=== PATIENT | female | born 1975 | race African-American/Black ===

== ENCOUNTER 2016-10-11 09:54 | Inpatient (IN) | payer MEDICAID ==
[~2016-10-11] VITALS: Ht 154.9 cm; Wt 56.7 kg
[2016-10-11] MEDS ORDERED: MAGNESIUM/ALUMINUM HYDROXIDE/SIMETHICONE 30ML UDC PO NR (10:50)
[2016-10-11] MEDS ORDERED: VISCOUS LIDOCAINE 2% 15 ML UDC PO NR (11:20)
[2016-10-11 11:39] LABS: HEMATOCRIT. 27.8 % (36.0-48.0); HEMOGLOBIN. 8.6 g/dL (12.0-16.0); MEAN CORPUSCULAR HEMOGLOBIN 19.8 pg (28.0-32.0); MEAN CORPUSCULAR HGB CONC 30.9 g/dL (31.0-37.0); MEAN PLATELET VOLUME 8.2 fl (7.4-10.4); PLATELET 342 x1000/uL (130-400); RED BLOOD CELL COUNT 4.34 mill/uL (4.2-5.4); RED CELL DISTRIBUTION WIDTH 20.1 % (11.6-14.6); WHITE BLOOD COUNT 15.8 x1000/uL (4.5-11.0)
[2016-10-11 11:42] LABS: DIFFERENTIAL COMMENT 1
[2016-10-11] MEDS: SODIUM CHLORIDE 0.9% 1,000 ML IV NR ×3 (11:42→13:23)
[2016-10-11 11:45] LABS: CLARITY URINE CLEAR (CLEAR); COLOR URINE DARK YELLOW (YELLOW); GLUCOSE URINE NEGATIVE (NEGATIVE); KETONES URINE TRACE (NEGATIVE); LEUKOCYTE ESTERASE URINE TRACE (NEGATIVE); NITRITE URINE POSITIVE (NEGATIVE); OCCULT BLOOD URINE TRACE (NEGATIVE); PH URINE 7.5 (4.5-8.0); PROTEIN URINE 2+ (NEGATIVE); SPECIFIC GRAVITY URINE 1.035 (1.005-1.030)
[2016-10-11 11:50] LABS: ALANINE AMINOTRANSFERASE 17 IU/L (13-61); ANION GAP 10; CALCIUM 8.3 mg/dL (8.5-10.1); CARBON DIOXIDE 29 mEq/L (21-32); CHLORIDE 101 mEq/L (98-107); INDEX HEMOLYSI 1 (1-3); INDEX ICTERIC 1 (1-4); INDEX LIPEMIC 1 (1-3); LIPASE 92 IU/L (73-393); UREA NITROGEN BLOOD 9 mg/dL (7-21); eGFR > 60 mL/min (>60)
[2016-10-11 11:56] LABS: INR 1.2
[2016-10-11] MEDS ORDERED: MORPHINE SULFATE 2 MG/ML CPJ (NOT FOR IM USE) IV ONE ×2 (12:00→12:30)
[2016-10-11] MEDS: ONDANSETRON HCL 4MG/2ML VIAL IV NR ×2 (12:06→21:23)
[2016-10-11 12:08] LABS: ANISOCYTOSIS 2+; PLATELET ESTIMATE NORMAL
[2016-10-11 12:09] LABS: MUCUS URINE TRACE /lpf (< = 2+)
[2016-10-11 12:09] LABS: HYPOCHROMASIA 1+
[2016-10-11 12:10] LABS: SQUAMOUS EPITHELIAL CELL URINE 1+ /lpf (RARE/1+)
[2016-10-11 12:10] LABS: ACANTHOCYTES FEW
[2016-10-11 12:11] LABS: BACTERIA URINE 3+
[2016-10-11 12:12] LABS: YEAST URINE FEW
[2016-10-11 12:13] LABS: RBC URINE NONE SEEN /hpf (0-2)
[2016-10-11] MEDS ORDERED: KETOROLAC 30MG/ML VIAL IV ONE (13:00)
[2016-10-11] MEDS ORDERED: METRONIDAZOLE 500 MG PREMIX 100 ML IV ONE (13:00)
[2016-10-11] MEDS ORDERED: CLINDAMYCIN 600 MG in DEXTROSE 5% WATER 50 ML IV SCH (13:00)
[2016-10-11] MEDS ORDERED: SODIUM CHLORIDE 0.9% 100 ML IV ONE (13:00)
[2016-10-11 15:15] LABS: HCG SCREEN NEGATIVE
[2016-10-11] MEDS ORDERED: KCL 20MEQ/100ML PREMIX 100 ML IV ONE (17:30)
[2016-10-11] MEDS ORDERED: DIPHENHYDRAMINE 50MG/ML VIAL IV PRN (18:15)
[2016-10-11 18:35] LABS: MAGNESIUM 1.9 mg/dL (1.8-2.4); PHOSPHORUS 2.5 mg/dL (2.5-4.9)
[2016-10-11 20:29] VITALS: BP 126/99
[2016-10-11 20:45] VITALS: BP 126/83
[2016-10-11] MEDS: MORPHINE SULFATE 4 MG/ML CPJ (NOT FOR IM USE) IV PRN (21:23)
[2016-10-11] MEDS ORDERED: MAGNESIUM 2 G PREMIX 50 ML IV NR (22:00)
[2016-10-11] MEDS ORDERED: LEVOFLOXACIN 750MG PREMIX 150 ML IV SCH (22:00)
[2016-10-11] MEDS: ACETAMINOPHEN 325MG TABLET PO PRN (22:58)
[2016-10-11] MEDS: DEXT 5%/0.45% NACL KCL 40MEQ/L 1,000 ML IV SCH (23:25)
[2016-10-11] MEDS: PANTOPRAZOLE SODIUM 40 MG/VIAL IV SCH (23:25)
[2016-10-11 23:56] VITALS: BP 95/52
[2016-10-12 03:36] VITALS: BP 92/56
[2016-10-12 05:28] LABS: BASOPHILS % 0.1 % (0.0-2.0); EOSINOPHILS % 0.1 % (0.0-5.0); HEMATOCRIT. 24.2 % (36.0-48.0); HEMOGLOBIN. 7.3 g/dL (12.0-16.0); LYMPHOCYTES % 12.6 % (20.0-50.0); MEAN CORPUSCULAR HEMOGLOBIN 19.5 pg (28.0-32.0); MONOCYTES % 10.6 % (2.0-8.0); NEUTROPHILS % 76.6 % (40.0-76.0); PLATELET 274 x1000/uL (130-400); RED BLOOD CELL COUNT 3.72 mill/uL (4.2-5.4); RED CELL DISTRIBUTION WIDTH 19.9 % (11.6-14.6)
[2016-10-12 05:56] LABS: ANION GAP 11; CALCIUM 7.5 mg/dL (8.5-10.1); CARBON DIOXIDE 27 mEq/L (21-32); CHLORIDE 105 mEq/L (98-107); INDEX HEMOLYSI 1 (1-3); INDEX ICTERIC 1 (1-4); INDEX LIPEMIC 1 (1-3); MAGNESIUM 2.7 mg/dL (1.8-2.4); UREA NITROGEN BLOOD 6 mg/dL (7-21); eGFR > 60 mL/min (>60)
[2016-10-12 06:19] LABS: DIFFERENTIAL COMMENT 1
[2016-10-12 06:20] LABS: ADD RBC MORPHOLOGY NO
[2016-10-12 08:00] VITALS: BP 95/72
[2016-10-12] MEDS: DEXT 5%/0.45% NACL KCL 40MEQ/L 1,000 ML IV SCH ×2 (08:00→18:00)
[2016-10-12] MEDS: ONDANSETRON HCL 4MG/2ML VIAL IV PRN ×2 (08:26→18:58)
[2016-10-12] MEDS: ACETAMINOPHEN 325MG TABLET PO PRN (08:29)
[2016-10-12] MEDS: PANTOPRAZOLE SODIUM 40 MG/VIAL IV SCH (09:00)
[2016-10-12] MEDS ORDERED: BISACODYL 10MG SUPP PR NR (10:00)
[2016-10-12] MEDS ORDERED: HYDROCODONE/ACETAMINOPHEN 5/325MG TABLET PO PRN (14:30)
[2016-10-12] MEDS: IRON SUCROSE COMPLEX 100 MG/5 ML ML IV SCH (15:13)
[2016-10-12 16:00] VITALS: BP 94/62
[2016-10-12 20:00] VITALS: BP 151/88
[2016-10-12] MEDS: LEVOFLOXACIN 750MG PREMIX 150 ML IV SCH (20:52)
[2016-10-12] MEDS: MORPHINE SULFATE 4 MG/ML CPJ (NOT FOR IM USE) IV PRN (20:59)
[2016-10-13] VITALS: BP 95/58
[2016-10-13 04:00] VITALS: BP 99/68
[2016-10-13] MEDS: DEXT 5%/0.45% NACL KCL 40MEQ/L 1,000 ML IV SCH ×2 (04:29→15:41)
[2016-10-13 07:48] LABS: ANION GAP 10; CALCIUM 7.9 mg/dL (8.5-10.1); CARBON DIOXIDE 27 mEq/L (21-32); CHLORIDE 106 mEq/L (98-107); INDEX HEMOLYSI 1 (1-3); INDEX ICTERIC 1 (1-4); INDEX LIPEMIC 1 (1-3); MAGNESIUM 2.1 mg/dL (1.8-2.4); PHOSPHORUS 1.5 mg/dL (2.5-4.9); eGFR > 60 mL/min (>60)
[2016-10-13 07:50] LABS: UREA NITROGEN BLOOD 2 mg/dL (7-21)
[2016-10-13 08:00] VITALS: BP 99/68
[2016-10-13 09:55] LABS: BASOPHILS % 0.8 % (0.0-2.0); EOSINOPHILS % 1.5 % (0.0-5.0); HEMATOCRIT. 24.8 % (36.0-48.0); HEMOGLOBIN. 7.6 g/dL (12.0-16.0); LYMPHOCYTES % 11.1 % (20.0-50.0); MEAN CORPUSCULAR HEMOGLOBIN 20.1 pg (28.0-32.0); MEAN CORPUSCULAR HGB CONC 30.5 g/dL (31.0-37.0); MEAN PLATELET VOLUME 8.2 fl (7.4-10.4); MONOCYTES % 7.7 % (2.0-8.0); NEUTROPHILS % 78.9 % (40.0-76.0); PLATELET 299 x1000/uL (130-400); RED BLOOD CELL COUNT 3.75 mill/uL (4.2-5.4); WHITE BLOOD COUNT 9.6 x1000/uL (4.5-11.0)
[2016-10-13 09:57] LABS: DIFFERENTIAL COMMENT 1
[2016-10-13] MEDS: PANTOPRAZOLE SODIUM 40 MG/VIAL IV SCH (10:35)
[2016-10-13 12:00] VITALS: BP 91/66
[2016-10-13] MEDS ORDERED: POTASSIUM PHOS,M-BASIC-D-BASIC 20 MMOL in DEXT 5% WATER 243.3333 ML IV ONE (13:00)
[2016-10-13] MEDS: IRON SUCROSE COMPLEX 100 MG/5 ML ML IV SCH (13:47)
[2016-10-13] MEDS ORDERED: IRON SUCROSE COMPLEX 100 MG/5 ML ML IV NR (14:45)
[2016-10-13] MEDS: ONDANSETRON HCL 4MG/2ML VIAL IV PRN (15:58)
[2016-10-13] MEDS: MORPHINE SULFATE 4 MG/ML CPJ (NOT FOR IM USE) IV PRN (15:58)
[2016-10-13 16:00] VITALS: BP 113/74
[2016-10-13 20:00] VITALS: BP 91/60
[2016-10-13] MEDS: LEVOFLOXACIN 750MG PREMIX 150 ML IV SCH (20:35)
[2016-10-14 04:00] VITALS: BP 99/61
[2016-10-14] MEDS: MORPHINE SULFATE 4 MG/ML CPJ (NOT FOR IM USE) IV PRN (06:02)
[2016-10-14 06:44] LABS: BASOPHILS % 0.5 % (0.0-2.0); EOSINOPHILS % 2.2 % (0.0-5.0); HEMOGLOBIN. 8.1 g/dL (12.0-16.0); LYMPHOCYTES % 13.2 % (20.0-50.0); MEAN CORPUSCULAR HGB CONC 31.1 g/dL (31.0-37.0); MEAN CORPUSCULAR VOLUME 64.3 fL (81.0-99.0); MEAN PLATELET VOLUME 7.7 fl (7.4-10.4); MONOCYTES % 12.6 % (2.0-8.0); NEUTROPHILS % 71.5 % (40.0-76.0); PLATELET 377 x1000/uL (130-400); RED BLOOD CELL COUNT 4.05 mill/uL (4.2-5.4); RED CELL DISTRIBUTION WIDTH 19.6 % (11.6-14.6); WHITE BLOOD COUNT 8.4 x1000/uL (4.5-11.0)
[2016-10-14 07:13] LABS: DIFFERENTIAL COMMENT 1
[2016-10-14 07:23] LABS: CHLORIDE 104 mEq/L (98-107); INDEX HEMOLYSI 1 (1-3); INDEX ICTERIC 1 (1-4); INDEX LIPEMIC 1 (1-3)
[2016-10-14 07:32] LABS: ANION GAP 12; CALCIUM 8.5 mg/dL (8.5-10.1); CARBON DIOXIDE 26 mEq/L (21-32); PHOSPHORUS 2.4 mg/dL (2.5-4.9); eGFR > 60 mL/min (>60)
[2016-10-14 07:34] LABS: UREA NITROGEN BLOOD 1 mg/dL (7-21)
[2016-10-14 07:50] VITALS: BP 91/55
[2016-10-14] MEDS: PANTOPRAZOLE SODIUM 40 MG/VIAL IV SCH (08:58)
[2016-10-14 12:03] VITALS: BP 96/55
[2016-10-14 12:52] VITALS: BP 96/55
[2016-10-14] MEDS ORDERED: IRON SUCROSE COMPLEX 100 MG/5 ML ML IV NR (15:00)
== END 2016-10-14 14:20 | disposition home or self-care (01) | DRG 720 ==
LOC: ER 10:32 → 6EST 17:18
PROVIDERS: ADMIT Internal Medicine; ATTEND Internal Medicine
DX: A41.9 Sepsis, unspecified organism (principal); E44.1 Mild protein-calorie malnutrition; E87.6 Hypokalemia; N39.0 Urinary tract infection, site not specified; D50.9 Iron deficiency anemia, unspecified; Z60.2 Problems related to living alone; R11.2 Nausea with vomiting, unspecified; G43.909 Migraine, unspecified, not intractable, without status migrainosus; D53.9 Nutritional anemia, unspecified; Z83.3 Family history of diabetes mellitus; Z80.9 Family history of malignant neoplasm, unspecified; Z68.23 Body mass index [BMI] 23.0-23.9, adult; Z88.0 Allergy status to penicillin
CPT/HCPCS: 36415; 70450; 74176; 76830; 76856; 80048; 80053; 81001; 81025; 83540; 83550; 83690; 83735; 84100; 84703; 85025; 85610; 87040; 87086; 96361; 96365; 96367; 96375; 96376; 99285; C9113; G0482; J1885; J1956; J2270; J2405; J3475; J3480; J3490; J7030; J7040; J7060

== ENCOUNTER 2016-11-16 12:55 | Emergency (ER) | payer MEDICAID ==
[~2016-11-16] VITALS: Ht 165.1 cm; Wt 55.0 kg
[2016-11-16 14:32] VITALS: BP 98/47
== END 2016-11-16 23:49 | disposition left against medical advice (07) ==
LOC: ER 21:17
DX: R11.10 Vomiting, unspecified (principal); Z53.21 Procedure and treatment not carried out due to patient leaving prior to being seen by health care provider

== ENCOUNTER 2016-11-17 07:54 | Inpatient (IN) | payer MEDICAID ==
[~2016-11-17] VITALS: Ht 154.9 cm; Wt 54.4 kg
[2016-11-17] MEDS ORDERED: KETOROLAC 30MG/ML VIAL IV STA (08:20)
[2016-11-17] MEDS ORDERED: SODIUM CHLORIDE 0.9% 1,000 ML IV ONE (08:20)
[2016-11-17 08:38] LABS: BASOPHILS % 0.3 % (0.0-2.0); EOSINOPHILS % 0.3 % (0.0-5.0); HEMOGLOBIN. 10.7 g/dL (12.0-16.0); LYMPHOCYTES % 15.5 % (20.0-50.0); MEAN CORPUSCULAR HEMOGLOBIN 22.5 pg (28.0-32.0); MEAN CORPUSCULAR HGB CONC 31.4 g/dL (31.0-37.0); MEAN CORPUSCULAR VOLUME 71.6 fL (81.0-99.0); MONOCYTES % 12.4 % (2.0-8.0); NEUTROPHILS % 71.5 % (40.0-76.0); PLATELET 238 x1000/uL (130-400); RED BLOOD CELL COUNT 4.75 mill/uL (4.2-5.4); RED CELL DISTRIBUTION WIDTH 25.9 % (11.6-14.6); WHITE BLOOD COUNT 10.6 x1000/uL (4.5-11.0)
[2016-11-17 08:45] LABS: INR 1.1; PARTIAL THROMBOPLASTIN TIME 29.8 sec (24.0-34.0); PROTHROMBIN TIME 11.6 sec
[2016-11-17] MEDS ORDERED: ONDANSETRON HCL 4MG/2ML VIAL IV ONE ×2 (08:45→09:15)
[2016-11-17 08:48] LABS: ADD RBC MORPHOLOGY YES; ALANINE AMINOTRANSFERASE 16 IU/L (13-61); ANION GAP 13; CALCIUM 8.3 mg/dL (8.5-10.1); CARBON DIOXIDE 29 mEq/L (21-32); CHLORIDE 101 mEq/L (98-107); DIFFERENTIAL COMMENT 1; INDEX HEMOLYSI 1 (1-3); INDEX ICTERIC 1 (1-4); INDEX LIPEMIC 1 (1-3); LIPASE 105 IU/L (73-393); UREA NITROGEN BLOOD 10 mg/dL (7-21)
[2016-11-17 08:53] LABS: NT PRO B-TYPE NATRIURETIC PEP 260 pg/mL (5-125); TROPONIN I 0.06 ng/mL (0.00-0.04); eGFR > 60 mL/min (>60)
[2016-11-17 09:09] LABS: HCG SCREEN NEGATIVE
[2016-11-17] MEDS ORDERED: KCL 10MEQ/50ML PREMIX 50 ML IV ONE (09:15)
[2016-11-17 10:06] LABS: ANISOCYTOSIS 4+; PLATELET ESTIMATE NORMAL
[2016-11-17 10:07] LABS: OVALOCYTES 1+
[2016-11-17 10:17] LABS: CLARITY URINE CLOUDY (CLEAR); COLOR URINE YELLOW (YELLOW); GLUCOSE URINE NEGATIVE (NEGATIVE); KETONES URINE NEGATIVE (NEGATIVE); LEUKOCYTE ESTERASE URINE 3+ (NEGATIVE); NITRITE URINE POSITIVE (NEGATIVE); OCCULT BLOOD URINE 3+ (NEGATIVE); PROTEIN URINE 1+ (NEGATIVE)
[2016-11-17 10:28] LABS: *AMPHETAMINES SCREEN URINE NEGATIVE (NEGATIVE); *BARBITURATES SCREEN URINE NEGATIVE (NEGATIVE); *BENZODIAZEPINES SCREEN URINE NEGATIVE (NEGATIVE); *COCAINE SCREEN URINE NEGATIVE (NEGATIVE); CANNABINOID URINE SCREEN PRESUMTIVE POSITIVE (NEGATIVE); ECSTASY MDMA SCREEN URINE NEGATIVE (NEGATIVE); METHADONE URINE SCREEN NEGATIVE (NEGATIVE); OPIATES URINE SCREEN NEGATIVE (NEGATIVE); PHENCYCLIDINE URINE SCREEN NEGATIVE (NEGATIVE)
[2016-11-17 10:31] LABS: BACTERIA URINE 3+; SQUAMOUS EPITHELIAL CELL URINE RARE /lpf (RARE/1+); WBC URINE 15-25 /hpf (0-2)
[2016-11-17 10:32] LABS: MUCUS URINE TRACE /lpf (< = 2+)
[2016-11-17] MEDS ORDERED: ASPIRIN 81MG TABLET PO ONE (10:45)
[2016-11-17] MEDS ORDERED: LEVOFLOXACIN 500MG PREMIX 100 ML IV ONE (13:15)
[2016-11-17] MEDS ORDERED: MAGNESIUM/ALUMINUM HYDROXIDE/SIMETHICONE 30ML UDC PO PRN (14:30)
[2016-11-17] MEDS ORDERED: DIPHENHYDRAMINE 50MG/ML VIAL IV PRN (14:30)
[2016-11-17] MEDS ORDERED: MORPHINE SULFATE 4 MG/ML CPJ (NOT FOR IM USE) IV PRN (14:30)
[2016-11-17] MEDS ORDERED: ONDANSETRON HCL 4MG/2ML VIAL IV PRN (14:30)
[2016-11-17] MEDS: ACETAMINOPHEN 325MG TABLET PO PRN ×2 (15:42→21:54)
[2016-11-17 17:17] VITALS: BP 91/52
[2016-11-17 18:20] VITALS: BP 91/52
[2016-11-17] MEDS: SODIUM CHLORIDE 0.9% 1,000 ML IV SCH (18:22)
[2016-11-17] MEDS ORDERED: MAGNESIUM 2 G PREMIX 50 ML IV PRN ×2 (18:36→21:45)
[2016-11-17] MEDS: FERROUS GLUCONATE 324MG TABLET PO SCH (19:05)
[2016-11-17 19:55] LABS: MAGNESIUM 1.9 mg/dL (1.8-2.4)
[2016-11-17 20:00] VITALS: BP 94/57
[2016-11-17] MEDS ORDERED: GENTAMICIN 100MG PREMIX 50 ML IV NR (20:00)
[2016-11-17] MEDS ORDERED: POTASSIUM CHLORIDE INJ 40 MEQ in DEXT 5% WATER 250 ML IV NR (21:00)
[2016-11-18] VITALS: BP 95/47
[2016-11-18] MEDS: SODIUM CHLORIDE 0.9% 1,000 ML IV SCH ×2 (01:00→13:00)
[2016-11-18 04:00] VITALS: BP 91/61
[2016-11-18 06:11] LABS: HEMATOCRIT. 31.8 % (36.0-48.0); HEMOGLOBIN. 10.1 g/dL (12.0-16.0); MEAN CORPUSCULAR HEMOGLOBIN 22.9 pg (28.0-32.0); MEAN CORPUSCULAR HGB CONC 31.7 g/dL (31.0-37.0); MEAN CORPUSCULAR VOLUME 72.1 fL (81.0-99.0); MEAN PLATELET VOLUME 8.4 fl (7.4-10.4); PLATELET 237 x1000/uL (130-400); RED BLOOD CELL COUNT 4.41 mill/uL (4.2-5.4); RED CELL DISTRIBUTION WIDTH 25.9 % (11.6-14.6); WHITE BLOOD COUNT 10.6 x1000/uL (4.5-11.0)
[2016-11-18 06:19] LABS: DIFFERENTIAL COMMENT 1
[2016-11-18 07:07] LABS: CHLORIDE 103 mEq/L (98-107); INDEX HEMOLYSI 1 (1-3); INDEX ICTERIC 1 (1-4); INDEX LIPEMIC 1 (1-3)
[2016-11-18 07:19] LABS: ANION GAP 18; CALCIUM 7.6 mg/dL (8.5-10.1); CARBON DIOXIDE 22 mEq/L (21-32); MAGNESIUM 1.9 mg/dL (1.8-2.4); TROPONIN I < 0.02 ng/mL (0.00-0.04); UREA NITROGEN BLOOD 5 mg/dL (7-21); eGFR > 60 mL/min (>60)
[2016-11-18 08:00] VITALS: BP 101/66
[2016-11-18] MEDS: FERROUS GLUCONATE 324MG TABLET PO SCH ×2 (08:00→12:59)
[2016-11-18] MEDS: ACETAMINOPHEN 325MG TABLET PO PRN (08:00)
[2016-11-18] MEDS ORDERED: GENTAMICIN 80MG PREMIX 100 ML IV SCH (08:00)
[2016-11-18 12:00] VITALS: BP 96/57
[2016-11-18] MEDS ORDERED: LEVOFLOXACIN 500MG PREMIX 100 ML IV SCH (13:00)
[2016-11-19 13:55] LABS: ANISOCYTOSIS 2+; PLATELET ESTIMATE NORMAL
== END 2016-11-18 15:30 | disposition home or self-care (01) | DRG 463 ==
LOC: ER 08:36 → 7WST 11:49
PROVIDERS: ADMIT Internal Medicine; ATTEND Internal Medicine
DX: N10 Acute pyelonephritis (principal); N30.00 Acute cystitis without hematuria; D50.9 Iron deficiency anemia, unspecified; R07.89 Other chest pain; E87.6 Hypokalemia; Z60.2 Problems related to living alone; Z88.0 Allergy status to penicillin; Z80.9 Family history of malignant neoplasm, unspecified; Z83.3 Family history of diabetes mellitus
CPT/HCPCS: 36415; 71010; 76830; 76856; 80048; 80053; 80305; 81001; 83690; 83735; 83880; 84484; 84703; 85025; 85610; 85730; 87040; 87077; 87086; 87186; 93005; 96361; 96365; 96375; 99291; J1580; J1885; J1956; J2405; J3480; J7030; J7060